=== PATIENT | female | born 1975 | race Caucasian/White ===

== ENCOUNTER 2016-12-03 00:33 | Emergency (ER) | payer SELFPAY ==
[~2016-12-03] VITALS: Ht 167.6 cm; Wt 70.9 kg
[~2016-12-03 00:33] MED LIST: ATIVAN2 MG PO; BIOTIN1000 MICRO PO; Claritin,Alavart PO; LAMOTRIGINE25 MG PO; LIBRIUM25 MG PO; Maalox, Mylanta PO; Motrin PO; NOHOMEMEDS; PROPRANOLOL HCL10 MG PO; Proventil,Ventolin H IH; SERTRALINE HCL50 MG PO; STRATTERA60 MG PO; THERAGRAN1 TABLET PO; THIAMINE HCL100 MG PO; THIAMINE,VITAM100 MG PO; VITAMIN B-1100 MG PO; ZITHROMAX250 MG PO; ZOFRAN ODT4 MG PO; celeXA PO
[2016-12-03 01:51] LABS: SERUM ETHYL ALCOHOL < 10 mg/dL
[2016-12-03 02:41] LABS: BASOPHIL COUNT 0.1 K/uL (0-0.1); EOSINOPHIL (%) 0 % (0-5); HEMATOCRIT 41.1 % (36.0-46.0); IMMATURE GRANULOCYTE (%) 0.6 % (0.0-0.7); INSTRUMENT ABS NEUTROPHIL CT 3.3 K/uL; LYMPHOCYTE COUNT 3.1 K/uL (1.0-2.8); MCH 31.6 PG (29.0-34.0); MCHC 34.5 G/DL (30.0-36.0); MCV 91.5 FL (83-99); MEAN PLAT.VOLUME 9.7 uM^3 (9.5-12.4); MONOCYTE COUNT 0.6 K/uL (0-0.8); NEUTROPHIL (%) 45.5 % (45-76); NEUTROPHIL COUNT 3.3 K/uL (1.8-6.4); PLATELET COUNT 455 K/uL (156-360); RBC DIS.WIDTH-CV 13.2 % (11.8-14.6); RBC DIS.WIDTH-SD 44.4 % (39-53); RED BLOOD COUNT 4.49 M/uL (3.80-5.20); WHITE BLOOD COUNT 7.1 K/uL (4.1-10.2)
[2016-12-03 02:57] LABS: CHLORIDE 100 mEq/L (99-109); POTASSIUM 3.3 mEq/L (3.7-5.4); SODIUM 137 mEq/L (136-147)
[2016-12-03 03:00] LABS: GLUCOSE 127 mg/dL (70-99)
[2016-12-03 03:01] LABS: ANION GAP 14 MEQ/L (2-14); TOTAL BILIRUBIN 0.2 mg/dL (0.0-1.0)
[2016-12-03 03:03] LABS: GFR ESTIMATE (CALCULATED) 40 mL/min/
[2016-12-03 03:04] LABS: ALKALINE PHOSPHATASE 57 IU/L (3-129)
[2016-12-03 03:05] LABS: DIRECT BILIRUBIN 0.1 mg/dL (0.0-0.3); UREA NITROGEN (BUN) 6 mg/dL (9-23)
[2016-12-03 03:07] LABS: SALICYLATE < 5.0 MG/DL (15-30)
[2016-12-03 03:08] LABS: LIPASE 49 U/L (1.0-51.0)
[2016-12-03 04:12] LABS: ADD MIUA? YES; BILIRUBIN NEGATIVE; BLOOD NEGATIVE; COLOR YELLOW ((YELLOW)); GLUCOSE (STRIP) NEGATIVE; KETONES 20; LEUKOCYTES NEGATIVE; NITRITE NEGATIVE; PROTEIN (STRIP) NEGATIVE; SPECIFIC GRAVITY 1.008 (1.000-1.030); UROBILINOGEN 0.2 MG/DL (0.2-1.0)
[2016-12-03 04:25] LABS: BACTERIA NONE SEEN /HPF; EPITHELIAL CELLS RARE /HPF; MUCUS NONE SEEN /LPF; RED BLOOD CELLS 0-5 /HPF (0-5); UCUL ADDED? NO; WHITE BLOOD CELLS 0-5 /HPF (0-5)
[2016-12-03 04:32] LABS: AMPHETAMINE NEGATIVE (500 ng/mL); BARBITURATES NEGATIVE (200 ng/mL); BENZODIAZEPINES NEGATIVE (150 ng/mL); COCAINE NEGATIVE (150 ng/mL); INTERNAL CONTROLS VALID? YES; METHADONE NEGATIVE (200 ng/mL); METHAMPHETAMINE NEGATIVE (500 ng/mL); OPIATES (MORPHINE) NEGATIVE (100 ng/mL); OXYCODONE NEGATIVE (100 ng/mL); PHENCYCLIDINE NEGATIVE (25 ng/mL); PROPOXYPHENE NEGATIVE (300 ng/mL); THC CANNABINOIDS NEGATIVE (50 ng/mL); TRICYCLIC ANTIDEPRESSANTS NEGATIVE (300 ng/mL)
[2016-12-03] MEDS ORDERED: LIBRIUM25 MG PO (05:55)
[2016-12-03 09:07] LABS: CHLORIDE 105 mEq/L (99-109); POTASSIUM 3.8 mEq/L (3.7-5.4); SODIUM 139 mEq/L (136-147)
[2016-12-03 09:09] LABS: GLUCOSE 119 mg/dL (70-99)
[2016-12-03 09:10] LABS: ANION GAP 9 MEQ/L (2-14)
[2016-12-03 09:13] LABS: GFR ESTIMATE (CALCULATED) 40 mL/min/
[2016-12-03 09:14] LABS: UREA NITROGEN (BUN) 5 mg/dL (9-23)
[2016-12-03 10:02] VITALS: BP 122/71
== END 2016-12-03 10:03 | disposition home or self-care (01) ==
LOC: EDBD 00:33 → EME 00:33
PROVIDERS: Emergency Medicine
DX: T51.2X1A Toxic effect of 2-Propanol, accidental (unintentional), initial encounter (principal); F10.20 Alcohol dependence, uncomplicated; F17.200 Nicotine dependence, unspecified, uncomplicated; Z85.118 Personal history of other malignant neoplasm of bronchus and lung; Z91.040 Latex allergy status
CPT/HCPCS: 80048; 80048 91; 80076; 81003; 83690; 83930; 85025; 90839; 99281; 99285; G0480; J3411; J7030; J7050

== ENCOUNTER 2016-12-05 04:18 | Emergency (ER) | payer SELFPAY ==
[~2016-12-05] VITALS: Ht 167.6 cm; Wt 75.5 kg
[2016-12-05 04:43] LABS: HEMATOCRIT 42.2 % (36.0-46.0); MCH 31.3 PG (29.0-34.0); MCHC 33.4 G/DL (30.0-36.0); MCV 93.6 FL (83-99); MEAN PLAT.VOLUME 9.3 uM^3 (9.5-12.4); PLATELET COUNT 401 K/uL (156-360); RED BLOOD COUNT 4.51 M/uL (3.80-5.20); WHITE BLOOD COUNT 8.5 K/uL (4.1-10.2)
[2016-12-05 04:58] LABS: CHLORIDE 103 mEq/L (99-109); POTASSIUM 3.8 mEq/L (3.7-5.4); SODIUM 143 mEq/L (136-147)
[2016-12-05 05:00] LABS: GLUCOSE 98 mg/dL (70-99)
[2016-12-05 05:01] LABS: ANION GAP 10 MEQ/L (2-14)
[2016-12-05 05:03] LABS: SERUM ETHYL ALCOHOL 259 mg/dL
[2016-12-05 05:04] LABS: GFR ESTIMATE (CALCULATED) > 59 mL/min/
[2016-12-05 05:06] LABS: UREA NITROGEN (BUN) 11 mg/dL (9-23)
[2016-12-05 05:07] LABS: SALICYLATE < 5.0 MG/DL (15-30)
[2016-12-05 10:55] VITALS: BP 103/68
== END 2016-12-05 11:03 | disposition home or self-care (01) ==
LOC: EME → EDBD 04:18 → EME 04:18
PROVIDERS: Emergency Medicine
DX: F10.129 Alcohol abuse with intoxication, unspecified (principal); Y90.8 Blood alcohol level of 240 mg/100 ml or more; F17.200 Nicotine dependence, unspecified, uncomplicated; Z85.118 Personal history of other malignant neoplasm of bronchus and lung
CPT/HCPCS: 80048; 85027; 93005; 99281; 99285; G0480; J7030

== ENCOUNTER 2016-12-07 01:22 | Emergency (ER) | payer SELFPAY ==
[~2016-12-07] VITALS: Ht 167.6 cm; Wt 73.2 kg
[2016-12-07 06:00] VITALS: BP 117/85
== END 2016-12-07 06:00 | disposition home or self-care (01) ==
LOC: EDBD 01:22 → EME 01:22
PROC: 0PSJXZZ Reposition Left Radius, External Approach (ICD-10-PCS; principal; 2016-12-07)
DX: F10.229 Alcohol dependence with intoxication, unspecified (principal); S59.202A Unspecified physeal fracture of lower end of radius, left arm, initial encounter for closed fracture; S09.90XA Unspecified injury of head, initial encounter; W17.89XA Other fall from one level to another, initial encounter; F17.200 Nicotine dependence, unspecified, uncomplicated
CPT/HCPCS: 70450; 71010; 73110; 99281; 99285; G0480

== ENCOUNTER 2016-12-07 16:53 | Emergency (ER) | payer SELFPAY ==
[~2016-12-07] VITALS: Ht 167.6 cm; Wt 72.5 kg
[2016-12-07 18:09] LABS: HEMATOCRIT 35.7 % (36.0-46.0); MCH 31.2 PG (29.0-34.0); MCHC 33.3 G/DL (30.0-36.0); MCV 93.7 FL (83-99); MEAN PLAT.VOLUME 9.4 uM^3 (9.5-12.4); PLATELET COUNT 344 K/uL (156-360); RBC DIS.WIDTH-CV 13.4 % (11.8-14.6); RBC DIS.WIDTH-SD 46.1 % (39-53); RED BLOOD COUNT 3.81 M/uL (3.80-5.20); WHITE BLOOD COUNT 8.8 K/uL (4.1-10.2)
[2016-12-07 18:20] LABS: CHLORIDE 105 mEq/L (99-109); POTASSIUM 3.9 mEq/L (3.7-5.4); SODIUM 141 mEq/L (136-147)
[2016-12-07 18:22] LABS: GLUCOSE 125 mg/dL (70-99)
[2016-12-07 18:23] LABS: ANION GAP 10 MEQ/L (2-14)
[2016-12-07 18:24] LABS: TOTAL BILIRUBIN 0.3 mg/dL (0.0-1.0)
[2016-12-07 18:25] LABS: ALKALINE PHOSPHATASE 59 IU/L (3-129); SERUM ETHYL ALCOHOL 205 mg/dL
[2016-12-07 18:27] LABS: GFR ESTIMATE (CALCULATED) > 59 mL/min/; UREA NITROGEN (BUN) 15 mg/dL (9-23)
[2016-12-07 22:01] LABS: ADD MIUA? NO; BILIRUBIN NEGATIVE; BLOOD NEGATIVE; COLOR YELLOW ((YELLOW)); GLUCOSE (STRIP) NEGATIVE; KETONES NEGATIVE; LEUKOCYTES NEGATIVE; NITRITE NEGATIVE; PROTEIN (STRIP) NEGATIVE; SPECIFIC GRAVITY 1.012 (1.000-1.030); UROBILINOGEN 0.2 MG/DL (0.2-1.0)
[2016-12-07 22:14] LABS: AMPHETAMINE NEGATIVE (500 ng/mL); BARBITURATES NEGATIVE (200 ng/mL); BENZODIAZEPINES PRESUMPTIVE POSITIVE (150 ng/mL); COCAINE NEGATIVE (150 ng/mL); INTERNAL CONTROLS VALID? YES; METHADONE NEGATIVE (200 ng/mL); METHAMPHETAMINE NEGATIVE (500 ng/mL); OPIATES (MORPHINE) NEGATIVE (100 ng/mL); OXYCODONE NEGATIVE (100 ng/mL); PHENCYCLIDINE NEGATIVE (25 ng/mL); PROPOXYPHENE NEGATIVE (300 ng/mL); THC CANNABINOIDS NEGATIVE (50 ng/mL); TRICYCLIC ANTIDEPRESSANTS NEGATIVE (300 ng/mL)
[2016-12-07 22:15] LABS: ADD MEDTOX COMMENT Y
[2016-12-07 22:49] LABS: BENZODIAZEPINES, URINE SCREEN POSITIVE (200 ng/mL)
[2016-12-07 23:53] VITALS: BP 124/90
== END 2016-12-07 23:55 | disposition home or self-care (01) ==
LOC: EDBD 16:53 → EME 16:53
PROVIDERS: Emergency Medicine
DX: F10.129 Alcohol abuse with intoxication, unspecified (principal); Y90.7 Blood alcohol level of 200-239 mg/100 ml; Z72.0 Tobacco use
CPT/HCPCS: 80053; 81003; 84999; 85027; 90839; G0480

== ENCOUNTER 2016-12-08 14:28 | Emergency (ER) | payer SELFPAY ==
[~2016-12-08] VITALS: Ht 167.6 cm; Wt 73.0 kg
[2016-12-08 16:06] LABS: CHLORIDE 108 mEq/L (99-109); POTASSIUM 4.3 mEq/L (3.7-5.4); SODIUM 144 mEq/L (136-147)
[2016-12-08 16:08] LABS: GLUCOSE 116 mg/dL (70-99)
[2016-12-08 16:10] LABS: ANION GAP 11 MEQ/L (2-14)
[2016-12-08 16:11] LABS: SERUM ETHYL ALCOHOL 300 mg/dL
[2016-12-08 16:12] LABS: GFR ESTIMATE (CALCULATED) > 59 mL/min/
[2016-12-08 16:13] LABS: UREA NITROGEN (BUN) 11 mg/dL (9-23)
[2016-12-08 16:43] LABS: BASOPHIL COUNT 0.1 K/uL (0-0.1); EOSINOPHIL COUNT 0.3 K/uL (0-0.3); HEMATOCRIT 39.2 % (36.0-46.0); IMMATURE GRANULOCYTE (%) 0.3 % (0.0-0.7); INSTRUMENT ABS NEUTROPHIL CT 3.3 K/uL; LYMPHOCYTE COUNT 2.2 K/uL (1.0-2.8); MCHC 32.9 G/DL (30.0-36.0); MCV 94.2 FL (83-99); MEAN PLAT.VOLUME 9.7 uM^3 (9.5-12.4); MONOCYTE (%) 6.8 % (3-12); MONOCYTE COUNT 0.4 K/uL (0-0.8); NEUTROPHIL (%) 53.1 % (45-76); NEUTROPHIL COUNT 3.3 K/uL (1.8-6.4); PLATELET COUNT 362 K/uL (156-360); RBC DIS.WIDTH-CV 13.4 % (11.8-14.6); RBC DIS.WIDTH-SD 46.4 % (39-53); RED BLOOD COUNT 4.16 M/uL (3.80-5.20); WHITE BLOOD COUNT 6.3 K/uL (4.1-10.2)
[2016-12-09 09:44] LABS: ADD MIUA? YES; BILIRUBIN NEGATIVE; BLOOD NEGATIVE; GLUCOSE (STRIP) NEGATIVE; KETONES NEGATIVE; LEUKOCYTES NEGATIVE; NITRITE NEGATIVE; PROTEIN (STRIP) NEGATIVE; SPECIFIC GRAVITY 1.008 (1.000-1.030); UROBILINOGEN 0.2 MG/DL (0.2-1.0)
[2016-12-09 09:46] LABS: COLOR YELLOW ((YELLOW))
[2016-12-09 09:47] LABS: BACTERIA RARE /HPF; EPITHELIAL CELLS RARE /HPF; MUCUS NONE SEEN /LPF; RED BLOOD CELLS 0-5 /HPF (0-5); WHITE BLOOD CELLS 0-5 /HPF (0-5)
[2016-12-09 09:57] LABS: AMPHETAMINE NEGATIVE (500 ng/mL); BARBITURATES NEGATIVE (200 ng/mL); BENZODIAZEPINES NEGATIVE (150 ng/mL); COCAINE NEGATIVE (150 ng/mL); INTERNAL CONTROLS VALID? YES; METHADONE NEGATIVE (200 ng/mL); METHAMPHETAMINE NEGATIVE (500 ng/mL); OPIATES (MORPHINE) NEGATIVE (100 ng/mL); OXYCODONE NEGATIVE (100 ng/mL); PHENCYCLIDINE NEGATIVE (25 ng/mL); PROPOXYPHENE NEGATIVE (300 ng/mL); THC CANNABINOIDS NEGATIVE (50 ng/mL); TRICYCLIC ANTIDEPRESSANTS NEGATIVE (300 ng/mL)
[2016-12-09] MEDS ORDERED: LIBRIUM25 MG PO (10:02)
[2016-12-09] MEDS ORDERED: THIAMINE HCL100 MG PO (10:02)
[2016-12-09 11:40] VITALS: BP 118/97
== END 2016-12-09 11:41 | disposition home or self-care (01) ==
LOC: EME 14:28
PROVIDERS: Emergency Medicine
DX: F41.9 Anxiety disorder, unspecified (principal); F10.129 Alcohol abuse with intoxication, unspecified; F32.9 Major depressive disorder, single episode, unspecified; Z91.040 Latex allergy status; Z72.0 Tobacco use
CPT/HCPCS: 80048; 81003; 85025; 90839; 99281; 99285; G0480

== ENCOUNTER 2016-12-09 17:27 | Emergency (ER) | payer SELFPAY ==
[~2016-12-09] VITALS: Ht 167.6 cm; Wt 73.2 kg
[2016-12-09 20:39] VITALS: BP 105/69
== END 2016-12-09 20:40 | disposition home or self-care (01) ==
LOC: EME 17:27
DX: F10.229 Alcohol dependence with intoxication, unspecified (principal); Z72.0 Tobacco use
CPT/HCPCS: 99281; 99283

== ENCOUNTER 2016-12-10 20:06 | Emergency (ER) | payer SELFPAY ==
[~2016-12-10] VITALS: Ht 167.6 cm; Wt 72.2 kg
[2016-12-11 01:20] VITALS: BP 123/76
== END 2016-12-11 01:31 | disposition home or self-care (01) ==
LOC: EME 20:06
DX: F10.229 Alcohol dependence with intoxication, unspecified (principal); Z72.0 Tobacco use
CPT/HCPCS: 99281; 99283

== ENCOUNTER 2017-07-13 14:48 | Emergency (ER) | payer OTHER ==
[~2017-07-13] VITALS: Ht 167.6 cm; Wt 63.6 kg
[~2017-07-13 14:48] MED LIST changes: +CLONIDINE HCL0.1 MG PO; +COLACE100 MG PO; +LORTAB 5-325 M1 EACH PO; +MOTRIN600 MG PO
[2017-07-13 19:37] VITALS: BP 137/96
== END 2017-07-13 19:44 | disposition home or self-care (01) ==
LOC: EME 14:48
DX: F10.129 Alcohol abuse with intoxication, unspecified (principal); F17.200 Nicotine dependence, unspecified, uncomplicated
CPT/HCPCS: 80048; 85027; 99281; 99284; G0480

== ENCOUNTER → 2017-08-15 | Outpatient (CLI) | payer OTHER | END | disposition home or self-care (01) | LOC: CDC 09:59 | DX: R00.2 Palpitations (principal) | CPT/HCPCS: 93000 ==